=== PATIENT | female | born 1960 | race Two or more races ===

== ENCOUNTER 2024-12-10 12:16 | Emergency (ER) | payer MEDICAID, OTHER ==
[~2024-12-10] VITALS: Ht 162.6 cm; Wt 54.4 kg
[2024-12-10 12:55] LABS: PLATELET COUNT (AUTO) 252 K/uL (150-450); RED BLOOD CELL COUNT(AUTO) 4.71 MIL/uL (4.0-5.2); RED CELL DISTRIBUTION WIDTH 13.0 % (11.5-15.0); WHITE BLOOD COUNT (AUTO) 3.9 K/uL (4.3-11.0)
[2024-12-10] MEDS ORDERED: PROCHLORPERAZINE EDISYLATE 10 MG/2 ML VIAL ONE (13:03)
[2024-12-10 13:07] LABS: CALCIUM, SERUM 9.7 mg/dL (8.5-10.1); CREATININE 1.0 mg/dL (0.6-1.3); SODIUM SERUM 137.0 mmol/L (136-145); UREA NITROGEN, BLOOD 12.0 mg/dL (7-18)
[2024-12-10] MEDS: IV NS 0.9% 1,000 ML BAG IV ONE (13:20)
[2024-12-10] MEDS: PROCHLORPERAZINE EDISYLATE 10 MG/2 ML VIAL IVP ONE (13:21)
[2024-12-10] MEDS ORDERED: BUTA1CAP46 PO (13:31)
[2024-12-10] MEDS ORDERED: IV NS 0.9% 250 ML IV ONE (13:41)
[2024-12-10] MEDS ORDERED: IOHEXOL-350 100 ML VIAL IV ONE (13:41)
[2024-12-10] MEDS ORDERED: KETOROLAC TROMETHAMINE 15 MG/ML VIAL ONE (14:39)
[2024-12-10] MEDS: KETOROLAC TROMETHAMINE 15 MG/ML VIAL IV ONE (14:45)
[2024-12-10 16:43] VITALS: BP 145/86; TEMP 97.7; O2SAT 99
== END 2024-12-10 16:45 | disposition home or self-care (01) ==
LOC: ER 12:23
DX: G43.909 Migraine, unspecified, not intractable, without status migrainosus (principal)
CPT/HCPCS: 99285; 70498; 96374; 96375; 96361; 70496; 85025; 80048; 36415; 70450; J1885; J0780; J1200; J7030; J7050; Q9967